=== PATIENT | male | born 2000 | race Caucasian/White ===

== ENCOUNTER → 2019-01-06 | Outpatient (REF) | payer OTHER | LOC: M LAB REF 13:11 | PROVIDERS: ATTEND Urology | DX: N50.82 Scrotal pain (principal) | CPT/HCPCS: 81002; 87086; G0463 ==

== ENCOUNTER → 2021-06-27 | Outpatient (REF) | LOC: M PLAIMG 13:19 | PROVIDERS: ATTEND Internal Medicine | DX: Z00.00 Encounter for general adult medical examination without abnormal findings (principal) ==